=== PATIENT | male | born 1955 | race Caucasian/White ===

== ENCOUNTER 2017-10-25 09:17 | Emergency (ER) | payer OTHER, MEDICAID ==
[~2017-10-25] VITALS: Ht 175.3 cm; Wt 90.7 kg
[2017-10-25] MEDS ORDERED: ASA5UEC PO (09:50)
[2017-10-25] MEDS ORDERED: CLONIDINE0.1 PO ×2 (09:51)
[2017-10-25] MEDS ORDERED: PRINIVIL20 MG PO (09:52)
[2017-10-25] MEDS ORDERED: CELEBREX 200 M200 M1 PO (09:52)
[2017-10-25] MEDS ORDERED: HYDROCODONE-AP1 EAC6 PO (12:04)
[2017-10-25 13:00] VITALS: BP 190/100
== END 2017-10-25 13:33 ==
LOC: ER 09:17
DX: S22.32XA Fracture of one rib, left side, initial encounter for closed fracture (principal); M25.552 Pain in left hip; W05.0XXA Fall from non-moving wheelchair, initial encounter; Y93.89 Activity, other specified; Y92.89 Other specified places as the place of occurrence of the external cause; Y99.8 Other external cause status

== ENCOUNTER 2020-06-06 01:38 | Emergency (ER) | payer OTHER, MEDICAID ==
[~2020-06-06] VITALS: Ht 172.7 cm; Wt 95.3 kg
--- NOTE | ~2020-06-06 | EMS ---
[facility] [address] [place] [address] EMS Patient Care Report Name: ANNI THOMAS Room #: REG TERRENCE Mc#: [id number] Admission: 06/06/20 Attend Phys: Discharge: Date of : 59 Report #: [id number] THIS REPORT FOR: //name// Report Transmitted: 06/06/2020 01:23 EMS Care Summary [facility] Incident [id number] @ 06/06/2020 01:00 Incident [address] [place] [address] Patient ANNI THOMAS Male, 64 Years 1955 Patient Address [address] [place] [address] Patient History Hypertension (HTN),Hyperlipidemia,Gastro-Esophageal Reflux Disease (GERD),Past Traumatic Brain Injury, Patient Allergies Sulfa, Patient Medications Tamsulosin, Famotidine, Nystatin, Chief Complaint bleeding from penis Disposition Transported No Lights/[place] Dispatch Reason Hemorrhage/Laceration Transported To [facility] Narrative Dispatched to the above location for a reported catheter problem. Arrived on [facility] [address] [place] [address] EMS Patient Care Report Name: ANNI THOMAS Room #: REG Jesusita#: [id number] Admission: 06/06/20 Attend Phys: Discharge: Date of : 59 Report #: [id number] scene to find pt. lying supine in bed, baseline AOx1, attended to by staff member in process of changing pt's disposable brief. Nurse stated the pt. had a blocked catheter earlier today and she replaced the catheter. After several hours the nurse noticed bright red blood in the urine bag. Nurse stated she removed the catheter at which point there was significant bleeding from the penis. Pt. unable to advocate for himself due to cognitive deficits that resulted from a previous TBI. Obtained VS, temp. BP measurements unreliable due to pt. struggling and fighting against the tightening cuff. Moved pt. to cot via lateral sheet pull, secured with straps and moved cot to ambulance without incident. Biocom to ED, bedside report and transfer of care to ED staff in 7 at [facility]. Initial Vitals @01:13P: 123,R: 16,BP: 181/112,GCS: 14,SpO2: 95,Revised Trauma: 12, @01:24P: 118,R: 16,Pain: 0/10,GCS: 13,Temp: 100.8F,SpO2: 94, Assessments @01:11MENTAL:Confused,Place Oriented,Person Oriented,SKIN:HEENT:LUNG SOUNDS:Right Upper: Guarding,Left Lower: Guarding,Left Upper: No Abnormalities,ABDOMEN:Right Upper: Guarding,Left Lower: Guarding,Left Upper: No Abnormalities,PELVIS//GI:EXTREMITIES:Left Arm: No Abnormalities,Right Arm: No Abnormalities,Left Leg: No Abnormalities,Right Leg: No Abnormalities,PULSE:NEURO:Slurred Speech, Impression Urinary system disorder Procedures @01:12Surgical Mask on PatientResponse: Unchanged Timeline :58,Call Received :58,Psap Call 01:00,Dispatched 01:02,En Route 01:06,On Scene 01:10,At Patient 01:12,Surgical Mask on Patient,Response: Unchanged 01:13,BP: 181/112 M,PULSE: 123,RR: 16 R,SPO2: 95 Ox,ETCO2: ,BG: ,PAIN: ,GCS: 14, 01:23,Depart Scene 01:24,BP: / M,PULSE: 118,RR: 16 R,SPO2: 94 Ox,ETCO2: ,BG: ,PAIN: 0,GCS: 13, 01:38,At Destination 01:53,Call Closed [facility] [address] [place] [address] EMS Patient Care Report Name: ANNI THOMAS Room #: REG [facility]#: [id number] Admission: 06/06/20 Attend Phys: Discharge: Date of : 59 Report #: [id number] Disclaimer [email or web address] Copyright 202 [employer] This EMS Care Summary contains data elements from the applicable legal record (which may be displayed differently). It is designed to provide pertinent information for the following purposes: continuity of care, clinical quality, and state data reporting. The complete legal record is available to ED staff and administrators of the receiving hospital in [employer] Patient Tracker. All data is provided "as is."
[~2020-06-06 01:38] MED LIST: ASA5UEC PO; CELEBREX 200 M200 M1 PO; CLONIDINE0.1 PO; HYDROCODONE-AP1 EAC6 PO; PRINIVIL20 MG PO
[2020-06-06] MEDS ORDERED: SUPER THERAVIT1 EACH PO (03:09)
[2020-06-06] MEDS ORDERED: FLOMAX0.4 MG PO (03:09)
[2020-06-06] MEDS ORDERED: FAMOTIDINE20 MG PO (03:10)
[2020-06-06] MEDS ORDERED: NYAMYC15 GM TOP (03:11)
[2020-06-06 04:34] LABS: ABSOLUTE NEUTROPHILS 10.9 thou/uL (1.4-8.2); BASOPHILS 0.2 % (0.0-2.0); EOSINOPHILS 1.1 % (0.0-3.0); HEMATOCRIT 47.9 % (42.0-52.0); HEMOGLOBIN 15.4 gm/dL (14.0-18.0); LYMPHOCYTES 8.1 % (24.0-44.0); MCH 26.7 pg (26.0-34.0); MCHC 32.2 g/dL (28.0-37.0); MCV 82.8 fL (80.0-100.0); MONOCYTES 0.7 % (1.0-8.0); PLATELET COUNT 191 thou/uL (150-400); POLYS 89.9 % (36.0-66.0); RBC 5.78 mil/uL (4.50-6.00); RDW 15.8 % (10.5-14.5); WBC 12.1 thou/uL (4.0-11.0)
[2020-06-06 04:41] LABS: ANION GAP 13 mmol/L (7-16); BUN 20 mg/dL (7-18); CALCIUM 8.9 mg/dL (8.5-10.1); CHLORIDE 104 mmol/L (98-107); CO2 25 mmol/L (21-32); CREATININE 1.1 mg/dL (0.7-1.3); GLUCOSE 154 mg/dL (74-106); SODIUM 142 mmol/L (136-145)
[2020-06-06 04:43] LABS: POTASSIUM 3.8 mmol/L (3.5-5.1)
[2020-06-06 04:46] LABS: ALBUMIN 3.3 g/dL (3.4-5.0); DIRECT BILIRUBIN < 0.1 mg/dL (<0.1-0.2); SGOT 37 U/L (15-37); SGPT 48 U/L (16-63); TOTAL BILIRUBIN 0.5 mg/dL (0.2-1.0); TOTAL PROTEIN 7.7 g/dL (6.4-8.2)
[2020-06-06 05:20] LABS: URINE BLOOD 3+ (Negative); URINE GLUCOSE-RANDOM* TRACE (Negative); URINE KETONES 1+ (Negative); URINE PROTEIN (DIPSTICK) 3+ (Negative); URINE SPECIFIC GRAVITY 1.015 (1.005-1.035); URINE UROBILINOGEN >= 8.0 E.U./dl (0.2-1.0)
[2020-06-06 05:28] LABS: URINE LEUKOCYTES-REFLEX 3+ (Negative); URINE NITRITE-REFLEX POSITIVE (Negative)
[2020-06-06 05:29] LABS: ICTOTEST (BILI CONFIRMATORY) Negative (Negative); URINE BILIRUBIN NEGATIVE (Negative); URINE CLARITY CLOUDY; URINE COLOR RED
[2020-06-06 05:36] LABS: BACTERIA-REFLEX 1-9 Few /HPF (None Seen); CASTS None Seen /LPF (None Seen); CRYSTALS None Seen /LPF (None Seen); MUCUS 0-3 Light strn/LPF (None Seen); SQUAMOUS None Seen /LPF (0-3); URINE RBC >20 Many /HPF (0-2); URINE WBC-REFLEX 6-15 Few /HPF (0-5)
[2020-06-06] MEDS ORDERED: KEFLEX500 M1 PO (06:48)
[2020-06-06 09:14] VITALS: BP 183/72
--- NOTE | 2020-06-06 15:24 | EKG ---
[address] [place] [address] ELECTROCARDIOGRAM REPORT Name: ANNI THOMAS [id number] Admission: 06/06/20 Attend Phys: Discharge: 06/06/20 Date of : 59 Report #: [id number] [facility] ED Test Date: 2020-06-06 Test Time: 05:07:12 Pat Name: ANNI THOMAS Department: Room: Gender: M Producer Director: AMEE : 1955 Requested By: Renetta Abdi Order Number: [id number] MD: Juwan Gardner Measurements Intervals Antoine Rate: 123 P: 36 OH: 175 QRS: 102 QRSD: 84 T: QT: 322 QTc: 461 Interpretive Statements Sinus tachycardia Probable left atrial enlargement Right axis deviation Nonspecific T abnormalities, inferior leads No previous ECG available for comparison Electronically Signed On 06-06-2020 15:24:29 COMMUNITY ADMINISTRATOR by Juwan Gardner [email or web address] <ELECTRONICALLY SIGNED> By: Juwan Gardner MD, [facility] 06/06/20 [id number] [phone] Juwan Gardner MD, FACC /EPI
== END 2020-06-06 09:17 ==
LOC: ER 01:38
PROVIDERS: Emergency Medicine
DX: T83.098A Other mechanical complication of other urinary catheter, initial encounter (principal); R33.9 Retention of urine, unspecified; N39.0 Urinary tract infection, site not specified; R09.02 Hypoxemia; E66.01 Morbid (severe) obesity due to excess calories; I10 Essential (primary) hypertension; E78.5 Hyperlipidemia, unspecified; M19.90 Unspecified osteoarthritis, unspecified site; K21.9 Gastro-esophageal reflux disease without esophagitis; Z86.73 Personal history of transient ischemic attack (TIA), and cerebral infarction without residual deficits; Z68.31 Body mass index [BMI] 31.0-31.9, adult; Z79.899 Other long term (current) drug therapy; Z79.82 Long term (current) use of aspirin; Z88.2 Allergy status to sulfonamides; Z87.891 Personal history of nicotine dependence; Y84.8 Other medical procedures as the cause of abnormal reaction of the patient, or of later complication, without mention of misadventure at the time of the procedure; Y92.89 Other specified places as the place of occurrence of the external cause